=== PATIENT | female | born 1960 | race Caucasian/White ===

== ENCOUNTER 2019-11-22 19:14 | Emergency (ER) | payer OTHER ==
[~2019-11-22] VITALS: Ht 170.2 cm; Wt 83.9 kg
[2019-11-22] MEDS ORDERED: PRED1TAB PO (19:39)
[2019-11-22] MEDS ORDERED: ESOM20SU PO (19:39)
[2019-11-22] MEDS ORDERED: MYCO500T PO (19:39)
[2019-11-22] MEDS ORDERED: CETI-110 PO (19:39)
[2019-11-22] MEDS ORDERED: DUPI300S SQ (19:39)
[2019-11-22] MEDS ORDERED: MULT-1045 PO (19:39)
--- NOTE | 2019-11-22 21:00 | NUR ---
Patient in room interacting with friend with no distress noted.
[2019-11-22] MEDS ORDERED: FAMOTIDINE 20 MG TABLET PO ONE (21:30)
[2019-11-22] MEDS ORDERED: predniSONE 20 MG TABLET PO ONE (21:30)
[2019-11-22] MEDS ORDERED: predniSONE 50 MG TABLET ONE (21:37)
[2019-11-22] MEDS ORDERED: predniSONE 10 MG TABLET ONE (21:37)
[2019-11-22] MEDS ORDERED: FAMOTIDINE 20 MG TABLET ONE (21:37)
--- NOTE | 2019-11-22 23:00 | NUR ---
Patient states "I feel better now. I want to go home."
--- NOTE | 2019-11-22 23:53 | NUR ---
Patient discharged to home in stable conditon. Written and verbal after care instructions given. Patient verbalizes understanding of instructions. WALKED OUT OF ER WITH NO DISTRESS NOTED.
[2019-11-22 23:54] VITALS: BP 128/78
== END 2019-11-22 23:55 | disposition home or self-care (01) ==
LOC: ER 19:23
DX: T78.49XA Other allergy, initial encounter (principal); J45.909 Unspecified asthma, uncomplicated; Z88.2 Allergy status to sulfonamides; Z79.899 Other long term (current) drug therapy; X58.XXXA Exposure to other specified factors, initial encounter
CPT/HCPCS: 71045; 93005; 99283; J7512 ×2; A4663